=== PATIENT | female | born 1985 | race Caucasian/White ===

== ENCOUNTER 2016-08-01 21:09 | Emergency (ER) | payer MEDICAID, OTHER ==
[2016-08-01] MEDS ORDERED: Sodium Chloride 0.9% 10 ML Syringe FLUSH PRN ×2 (21:32→21:34)
[2016-08-01] MEDS ORDERED: Ondansetron 4 MG/2 ML SDV IVPUSH ONE (21:35)
[2016-08-01] MEDS ORDERED: Sodium Chloride 0.9% 1,000 ML IV ONE ×2 (21:35→23:52)
[2016-08-01] MEDS ORDERED: Acetaminophen 325 MG Tab PO ONE (21:47)
[2016-08-01] MEDS ORDERED: Acetaminophen 500 MG Tab ONE (21:55)
[2016-08-01 22:28] LABS: CHLORIDE,CL 96 mmol/L (98-107); SODIUM,NA 132 mmol/L (136-145)
[2016-08-01] MEDS ORDERED: Piperacillin/Tazobactam 4.5 GM in Sodium Chloride 0.9% 100 ML IV ONE (22:40)
[2016-08-01] MEDS ORDERED: Iopamidol 612 MG/ML 100 ML Bottle IVPUSH ONE (23:03)
[2016-08-01] MEDS ORDERED: Sodium Chloride 0.9% 100 ML IV ONE (23:03)
[2016-08-02 00:12] VITALS: BP 91/50
--- NOTE | 2016-08-02 09:44 | ER ---
Date of Service: 08/01/2016 SUBJECTIVE: Sri presents to the emergency room via EMS. The patient has a longstanding history of IV drug use and is known to be an IV drug user as well as for placement of methamphetamine rectally. The patient initially denied this, but did subsequently confess to rectal placement of methamphetamine. The patient states that for the past 6 days she has been experiencing severe fever, chills, and severe tenesmus. She states that she has not been able to have a bowel movement for several days. Again, she states that she has been feeling poorly for approximately 6. The patient states that she last injected methamphetamine yesterday. Again, the patient does have a longstanding history of methamphetamine use. She was last seen in this facility in May with agitation and confusion associated with her methamphetamine abuse. PAST MEDICAL HISTORY: 1. Severe methamphetamine addiction. 2. History of opiate addiction. 3. Marijuana user. 4. Depression. 5. Anxiety. 6. Urinary tract infections. MEDICATIONS: The patient had been prescribed clonazepam, escitalopram, and bupropion, but the last time these medications were filled were in April. ALLERGIES: Trimethoprim and sulfamethoxazole. REVIEW OF SYSTEMS: Constitutional: Positive for fever and chills. HEENT: Denies any sore throat, rhinorrhea, or congestion. Respiratory: No shortness of breath. Cardiac: Denies any substernal chest pain. No jaw, arm, neck, or back pain. GI: Please see history of present illness. : Please see history of present illness. She denies any hematuria. No melena, hematochezia, or hematemesis. Neurologic: Does feel extremely fatigued. She was extremely weak and barely able to walk. PHYSICAL EXAMINATION: General: This is a 31-year-old female patient, who is in moderate amount of distress. Vital Signs: Initial vital signs; heart rate is 126, blood pressure is 127/79, respiratory rate 22, O2 saturations 98%, and T-max in the ER was 38.4. Skin: Warm, pale, and mildly diaphoretic. HEENT: Head is normocephalic and atraumatic. Mouth, oral mucosa is moist. No erythema or exudate noted in the patient's hypopharynx. Neck: Supple, without masses. There is no lymphadenopathy. Lungs: Clear to auscultation. Heart: Regular rate and rhythm. No murmurs are appreciated. Abdomen: Soft, tender in the lower abdominal region. Again, complains of severe tenesmus and inability to have a bowel movement due to pain. Extremities: Without edema. Neurologic: She is awake. Able to answer questions, but is somnolent. Remainder of her physical examination is within normal limits. LABORATORY DATA: The patient did have an 18,100 white count, hemoglobin is 10.7, and platelets are 212. Coags; PT is 12.2 and INR is 1.1. Sodium is 132, potassium is 3.8, chloride is 96, bicarb is 25, BUN is 9, creatinine is 1.2, GFR is 53, glucose is 94, lactic acid is 1.3, calcium is 8.5, and corrected calcium is 9.62. Total bilirubin is 1.2, AST is 11, ALT is 18, alkaline phosphatase is 80, C-reactive protein is 41, total protein is 6.2, albumin is 2.6, and amylase is 19. Urinalysis revealed small occult blood, rare mucus, negative for nitrites, leukocytes, protein, ketones, and glucose. Urine toxicology positive for amphetamine and methamphetamine. CT scan of the patient's abdomen and pelvis revealed severe colitis to the distal colon with constipation proximal to this consistent with inability to void due to tenesmus. There was some surrounding inflammatory change and mild free fluid or and also a small ovarian cyst. EMERGENCY ROOM COURSE: IV access was established x2. The patient was fluid resuscitated with a total of approximately 2 L of normal saline. She was started on Zosyn 4.5 g IV x1 and vancomycin 1750 mg IV x1. She was given Zofran 4 mg for nausea. Her heart rate decreased to approximately 110 at time of discharge. She remained stable in my care in the emergency room. 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 PLAN: The patient will be transferred to [facility]. She will require a surgical consult at some point if she is not gradually improving. She also will require an echocardiogram. We will continue with IV fluids during transport. All questions were answered. MWK: 08/02/2016 00:04:04 MODL: 08/02/2016 01:01:39 /[id number]
== END 2016-08-02 00:30 | disposition short-term general hospital (02) ==
LOC: VM.ED 21:09
DX: T80.29XA Infection following other infusion, transfusion and therapeutic injection, initial encounter (principal); K55.039 Acute (reversible) ischemia of large intestine, extent unspecified; F32.9 Major depressive disorder, single episode, unspecified; Z88.2 Allergy status to sulfonamides; F41.9 Anxiety disorder, unspecified; Z88.8 Allergy status to other drugs, medicaments and biological substances
CPT/HCPCS: 36415; 51702; 71010; 74177; 80053; 80305; 81001; 81025; 82150; 83605; 85025; 85610; 86140; 87040; 87081; 87804; 87880; 93005; 96360; 96361; 96365; 96367; 96375; 99285; A9270; J2405; J2543; J3370; J7030; J7050; Q9967

== ENCOUNTER 2019-04-07 14:55 | Emergency (ER) | payer MEDICAID ==
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
[2019-04-07 15:44] VITALS: BP 133/95; PULSE 104
[2019-04-07 16:02] LABS: BUPRENORPHINE,URINE NEGATIVE (NEGATIVE); MARIJUANA,URINE NEGATIVE (NEGATIVE); METHYLENEDIOXYMETHAMP,UR NEGATIVE (NEGATIVE)
[2019-04-07 16:03] LABS: PHENCYCLIDINE,URINE NEGATIVE (NEGATIVE)
[2019-04-07 16:18] LABS: CHLORIDE,CL 108 mmol/L (98-107); SODIUM,NA 144 mmol/L (136-145)
[2019-04-07 16:37] LABS: ACETAMINOPHEN 0 ug/ml (10-30)
== END 2019-04-07 17:10 | disposition home or self-care (01) ==
LOC: VM.ED 14:55
DX: F32.9 Major depressive disorder, single episode, unspecified (principal); F41.9 Anxiety disorder, unspecified; Z88.2 Allergy status to sulfonamides; Z88.1 Allergy status to other antibiotic agents; Z79.899 Other long term (current) drug therapy
CPT/HCPCS: 36415; 80048; 80305-QW; 81001; 84443; 85025; 99284; G0480

== ENCOUNTER 2019-04-11 12:51 | Emergency (ER) | payer MEDICAID ==
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
[2019-04-11 13:06] VITALS: BP 139/97; PULSE 81
[2019-04-11 13:56] LABS: BARBITURATE SCREEN,URINE NEGATIVE (NEGATIVE); BENZODIAZEPINES SCREEN,URINE NEGATIVE (NEGATIVE); EDDP,URINE SCREEN NEGATIVE (NEGATIVE); METHAMPHETAMINE SCREEN, URINE NEGATIVE (NEGATIVE); TCA SCREEN,URINE NEGATIVE (NEGATIVE); THC SCREEN,URINE 50 NG/ML NEGATIVE (NEGATIVE)
== END 2019-04-11 15:36 | disposition home or self-care (01) ==
LOC: VM.ED 12:51
DX: F32.9 Major depressive disorder, single episode, unspecified (principal); F41.0 Panic disorder [episodic paroxysmal anxiety]; F17.200 Nicotine dependence, unspecified, uncomplicated; Z88.2 Allergy status to sulfonamides; Z88.1 Allergy status to other antibiotic agents; Z79.899 Other long term (current) drug therapy
CPT/HCPCS: 36415; 80305-QW; 81025; 85025; 99284

== ENCOUNTER 2019-07-11 12:11 | Emergency (ER) | payer MEDICAID ==
[2019-07-11 12:41] LABS: BARBITURATE SCREEN,URINE NEGATIVE (NEGATIVE); BENZODIAZEPINES SCREEN,URINE NEGATIVE (NEGATIVE); EDDP,URINE SCREEN NEGATIVE (NEGATIVE)
[2019-07-11 12:42] LABS: METHAMPHETAMINE SCREEN, URINE POSITIVE (NEGATIVE); TCA SCREEN,URINE NEGATIVE (NEGATIVE); THC SCREEN,URINE 50 NG/ML NEGATIVE (NEGATIVE)
[2019-07-11 12:57] LABS: CHLORIDE,CL 105 mmol/L (98-107); SODIUM,NA 138 mmol/L (136-145)
[2019-07-11 13:01] VITALS: BP 139/83; PULSE 94
[2019-07-11 13:04] LABS: ANION GAP 15.9 mmol/L (10-20)
--- NOTE | 2019-07-11 13:05 | EDM.PDOCBH ---
ED HPI GENERAL MEDICAL PROBLEM - General Chief Complaint: Behavioral/Psych Stated Complaint: MENTAL HEALTH Time Seen by Provider: 07/11/19 12:25 Source of Information: Reports: Patient History Limitations: Reports: No Limitations - History of Present Illness INITIAL COMMENTS - FREE TEXT/NARRATIVE: Patient presents to ER with local police with concerns of meth use, suicidal ideation and paranoia. Patient has long history of intermittent meth use. Admits last used 3 days ago. Has been in and out of treatment multiple times. Last inpatient stay in [place] in January. She admits that she had been clean for a few weeks and then her ex-boyfriend came back and "enticed her" again so she smoked it. Now she feels she is coming down from it, can feel she is on edge. Has been hearing things in her apartment, like her boyfriend, stalking her and she doesn't know if it is real. She has felt very depressed the last few days and knows she needs help. States she thinks about suicide more than she doesn't. Thinks about sitting [place] the [place] or hanging herself. No attempts. Has been involved with this shanda in her life for 3 years and that is when she first started daily using of meth. Onset: Gradual Duration: Day(s):, Getting Worse Location: Reports: Generalized Associated Symptoms: Reports: Confusion. Denies: Chest Pain, Cough, Fever/ Chills, Loss of Appetite, Nausea/Vomiting, Shortness of Breath, Weakness - Related Data Allergies Allergy/AdvReac Type Severity Reaction Status Date / Time sulfamethoxazole Allergy Other Verified 07/11/19 12:20 [From Bactrim] trimethoprim [From Bactrim] Allergy Other Verified 07/11/19 12:20 Home Meds: Home Meds ClonazePAM [KlonoPIN] 0.5 mg PO ASDIRECTED 04/07/19 [History] Escitalopram [Lexapro] 30 mg PO DAILY 04/07/19 [History] Propranolol [Inderal] 40 mg PO BID 04/07/19 [History] Topiramate [Topamax] 50 mg PO BID 04/07/19 [History] buPROPion [Wellbutrin SR] 150 mg PO DAILY 07/11/19 [History] traZODone HCl [Trazodone HCl] 50 mg PO DAILY 07/11/19 [History] Past Medical History Other HEENT History: environmental allergies Genitourinary History: Reports: Other (See Below) Other Genitourinary History: cystitis 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 Musculoskeletal History: broken ankle Neurological History: Reports: Migraines Psychiatric History: Reports: Addiction, Anxiety, Depression - Past Surgical History HEENT Surgical History: Reports: Adenoidectomy, Tonsillectomy Social & Family History - Tobacco Use Smoking Status *Q: Current Every Day Smoker - Recreational Drug Use Recreational Drug Type: Reports: Marijuana/Hashish, Methamphetamine Recreational Drug Use Frequency: Binges Years of Recreational Drug Use: 4 Recreational Drug Route: Reports: Inhaled ED ROS GENERAL - Review of Systems Review Of Systems: See Below Constitutional: Reports: Decreased Appetite. Denies: Fever, Chills, Malaise, Weakness HEENT: Denies: Ear Pain, Sinus Problem, Throat Pain Respiratory: Denies: Shortness of Breath, Cough Cardiovascular: Denies: Chest Pain, Edema, Lightheadedness Endocrine: Reports: Fatigue GI/Abdominal: Denies: Abdominal Pain, Nausea, Vomiting : Reports: No Symptoms Musculoskeletal: Reports: No Symptoms Skin: Reports: Lesions Neurological: Reports: Confusion Psychiatric: Reports: Agitation, Anxiety, Confusion, Depression, Hallucinations , Suicidal Ideation. Denies: Homicidal Ideation ED EXAM, BEHAVIORAL HEALTH - Physical Exam Exam: See Below Exam Limited By: No Limitations General Appearance: Alert, Other (very jittery, in constant motion) Eye Exam: Bilateral Eye: PERRL Ears: Normal External Exam, Normal TMs Nose: Normal Inspection, Normal Mucosa, No Blood Throat/Mouth: Normal Inspection, Normal Oropharynx Head: Normocephalic Neck: Normal Inspection, Supple, Non-Tender Respiratory/Chest: No Respiratory Distress, Lungs Clear, Normal Breath Sounds Cardiovascular: Regular Rate, Rhythm GI/Abdominal: Normal Bowel Sounds, Soft, Non-Tender Extremities: Normal Inspection, No Pedal Edema Neurological: Alert, Normal Cognition, Oriented x 3 Psychiatric: Alert, Restless, Agitated, Flight of Ideas, Suicidal Thoughts, Auditory Hallucinations, Paranoid Thoughts. No: Homicidal Thoughts Skin Exam: Warm, Dry, Wound/incision (scattered lesions and wounds on her face, arms) COURSE, BEHAVIORAL HEALTH COMP - Course Vital Signs: Last Vital Signs Temp 95.7 F L 07/11/19 12:27 Pulse 94 07/11/19 12:27 Resp 16 07/11/19 12:27 BP 139/83 07/11/19 12:27 Pulse Ox 98 07/11/19 12:27 Orders, Labs, Meds: Laboratory Tests 07/11/19 07/11/19 07/11/19 Range/Units 12:30 12:30 12:35 WBC 8.7 (4.0-10.0) x10^3/uL RBC 4.54 (4.00-5.50) x10^6/uL Hgb 12.7 (12.0-16.0) g/dL Hct 37.2 (33.0-47.0) % MCV 81.9 D (78.0-93.0) fL MCH 28.0 (26.0-32.0) pg MCHC 34.1 (32.0-36.0) g/dL RDW Coeff of Hermelindo 13.6 (10.0-15.0) % Plt Count 326 (130-400) x10^3/uL Neut % (Auto) 66.1 (50.0-80.0) % Lymph % (Auto) 21.7 L (25.0-50.0) % Coffey % (Auto) 9.0 (2.0-11.0) % Eos % (Auto) 2.9 (0.0-4.0) % Baso % (Auto) 0.3 (0.2-1.2) % Sodium 138 (136-145) mmol/L Potassium 3.9 (3.5-5.1) mmol/L Chloride 105 (98-107) mmol/L Carbon Dioxide 21 (21-32) mmol/L Anion Gap 15.9 (10-20) mmol/L BUN 14 (7-18) mg/dL Creatinine 0.9 (0.55-1.02) mg/dL Est Cr Clr Drug Dosing TNP Estimated GFR (MDRD) > 60 Glucose 101 (74-106) mg/dL Calcium 8.5 (8.5-10.1) mg/dL Corrected Calcium 8.74 (8.5-10.1) mg/dL Total Bilirubin 0.6 (0.2-1.0) mg/dL AST 15 (15-37) U/L ALT 24 (14-59) U/L Alkaline Phosphatase 84 (46-116) U/L Total Protein 7.0 (6.4-8.2) g/dL Albumin 3.7 (3.4-5.0) g/dL Globulin 3.3 Albumin/Globulin Ratio 1.12 Urine Color (YELLOW) Urine Appearance (CLEAR) Urine pH (5.0-8.0) Ur Specific [place] Urine Protein (NEGATIVE) mg/dL Urine Glucose (UA) (NEGATIVE) mg/dL Urine Ketones (NEGATIVE) mg/dL Urine Occult Blood (NEGATIVE) Urine Nitrite (NEGATIVE) Urine Bilirubin (NEGATIVE) Urine Urobilinogen (0.2) EU/dL Ur Leukocyte Esterase (NEGATIVE) Urine RBC (NOT SEEN) /HPF Urine WBC (NOT SEEN) /HPF Ur Squamous Epith Cells (NEGATIVE) /HPF Amorphous Sediment Urine Bacteria (NEGATIVE) /HPF Urine Mucus (NEGATIVE) /LPF Urine Opiates Screen Negative (NEGATIVE) Ur Buprenorphine Scrn Negative (NEGATIVE) Ur Oxycodone Screen Negative (NEGATIVE) Ur EDDP (Meth Metab) Negative (NEGATIVE) Urine Methadone Screen Negative (NEGATIVE) Ur Barbiturates Screen Negative (NEGATIVE) Ur Tricyclics Screen Negative (NEGATIVE) Ur Phencyclidine Scrn Negative (NEGATIVE) Ur Amphetamine Screen Negative (NEGATIVE) U Methamphetamines Scrn Positive H (NEGATIVE) Urine MDMA Screen Negative (NEGATIVE) U Benzodiazepines Scrn Negative (NEGATIVE) U Cocaine Metab Screen Negative (NEGATIVE) U Marijuana (THC) Screen Negative (NEGATIVE) Ethyl Alcohol < 3 (0-3) mg/dL 07/11/19 Range/Units 12:35 WBC (4.0-10.0) x10^3/uL RBC (4.00-5.50) x10^6/uL Hgb (12.0-16.0) g/dL Hct (33.0-47.0) % MCV (78.0-93.0) fL MCH (26.0-32.0) pg MCHC (32.0-36.0) g/dL RDW Coeff of Hermelindo (10.0-15.0) % Plt Count (130-400) x10^3/uL Neut % (Auto) (50.0-80.0) % Lymph % (Auto) (25.0-50.0) % Coffey % (Auto) (2.0-11.0) % Eos % (Auto) (0.0-4.0) % Baso % (Auto) (0.2-1.2) % Sodium (136-145) mmol/L Potassium (3.5-5.1) mmol/L Chloride (98-107) mmol/L Carbon Dioxide (21-32) mmol/L Anion Gap (10-20) mmol/L BUN (7-18) mg/dL Creatinine (0.55-1.02) mg/dL Est Cr Clr Drug Dosing Estimated GFR (MDRD) Glucose (74-106) mg/dL Calcium (8.5-10.1) mg/dL Corrected Calcium (8.5-10.1) mg/dL Total Bilirubin (0.2-1.0) mg/dL AST (15-37) U/L ALT (14-59) U/L Alkaline Phosphatase (46-116) U/L Total Protein (6.4-8.2) g/dL Albumin (3.4-5.0) g/dL Globulin Albumin/Globulin Ratio Urine Color Yellow (YELLOW) Urine Appearance Slightly cloudy H (CLEAR) Urine pH 7.0 (5.0-8.0) Ur Specific [place] 1.025 Urine Protein Negative (NEGATIVE) mg/dL Urine Glucose (UA) Negative (NEGATIVE) mg/dL Urine Ketones Negative (NEGATIVE) mg/dL Urine Occult Blood Trace-intact H (NEGATIVE) Urine Nitrite Negative (NEGATIVE) Urine Bilirubin Negative (NEGATIVE) Urine Urobilinogen 0.2 (0.2) EU/dL Ur Leukocyte Esterase Negative (NEGATIVE) Urine RBC 5-10 H (NOT SEEN) /HPF Urine WBC 0-5 (NOT SEEN) /HPF Ur Squamous Epith Cells Moderate H (NEGATIVE) /HPF Amorphous Sediment Moderate Urine Bacteria Rare (NEGATIVE) /HPF Urine Mucus Occasional H (NEGATIVE) /LPF Urine Opiates Screen (NEGATIVE) Ur Buprenorphine Scrn (NEGATIVE) Ur Oxycodone Screen (NEGATIVE) Ur EDDP (Meth Metab) (NEGATIVE) Urine Methadone Screen (NEGATIVE) Ur Barbiturates Screen (NEGATIVE) Ur Tricyclics Screen (NEGATIVE) Ur Phencyclidine Scrn (NEGATIVE) Ur Amphetamine Screen (NEGATIVE) U Methamphetamines Scrn (NEGATIVE) Urine MDMA Screen (NEGATIVE) U Benzodiazepines Scrn (NEGATIVE) U Cocaine Metab Screen (NEGATIVE) U Marijuana (THC) Screen (NEGATIVE) Ethyl Alcohol (0-3) mg/dL Medical Clearance: 07/11/19 13:11 Labs are all clear. Urine positive for meth. Contact Jada the screener for the [facility], who was aware and requested medical clearance. [employer] [facility] here for transport. Patient agreeable to plan. Departure - Departure Time of Disposition: 13:12 Disposition: DC/Tfer to Psych Hosp/Unit [facility] Condition: Fair Clinical Impression: Hallucinations, Methamphetamine abuse, History of suicidal ideation - Discharge Information *PRESCRIPTION DRUG MONITORING PROGRAM REVIEWED*: No *COPY OF PRESCRIPTION DRUG MONITORING REPORT IN PATIENT KAI: No Forms: ED Department Discharge Additional Instructions: Transfer to the [facility] screener per local exchange clerk's department Sepsis Event Note - Focused Exam Vital Signs: Vital Signs Temp Pulse Resp BP Pulse Ox 07/11/19 12:27 95.7 F L 94 16 139/83 98 Date Exam was Performed: 07/11/19 Time Exam was Performed: 13:11
== END 2019-07-11 13:20 ==
LOC: VM.ED 12:11
DX: R44.3 Hallucinations, unspecified (principal); F15.10 Other stimulant abuse, uncomplicated; G43.909 Migraine, unspecified, not intractable, without status migrainosus; F41.9 Anxiety disorder, unspecified; F32.9 Major depressive disorder, single episode, unspecified; F17.200 Nicotine dependence, unspecified, uncomplicated; Z88.2 Allergy status to sulfonamides; Z88.1 Allergy status to other antibiotic agents; Z79.899 Other long term (current) drug therapy
CPT/HCPCS: 36415; 80053; 80305-QW; 80307; 81001; 85025; 99285

== ENCOUNTER 2024-07-02 04:50 | Emergency (ER) | payer MEDICAID ==
[2024-07-02] MEDS: Sodium Chloride 0.9% 1,000 ML IV ONE (05:45)
[2024-07-02] MEDS: Ondansetron 4 MG/2 ML SDV IVPUSH PRN (05:46)
[2024-07-02] MEDS: diphenhydrAMINE 50 MG/ML SDV IVPUSH ONE (05:48)
[2024-07-02 05:49] LABS: ANION GAP 14.1 mmol/L (5-15); BLOOD UREA NITROGEN,BUN 13 mg/dL (7-18); CALCIUM 8.8 mg/dL (8.5-10.1); CARBON DIOXIDE,CO2 23 mmol/L (21-32); CHLORIDE,CL 104 mmol/L (98-107); CREATININE 0.9 mg/dL (0.55-1.02); ESTIMATED GFR 84 mL/min (>=60); GLUCOSE RANDOM 111 mg/dL (70-99); POTASSIUM,K 4.1 mmol/L (3.5-5.1); SODIUM,NA 137 mmol/L (136-145)
[2024-07-02] MEDS: Ketorolac 30 MG/ML SDV IVPUSH ONE (06:15)
[2024-07-02 06:44] VITALS: BP 148/95; PULSE 91
== END 2024-07-02 07:09 | disposition home or self-care (01) ==
LOC: VM.ED 04:50
DX: R51.9 Headache, unspecified (principal); Z79.899 Other long term (current) drug therapy; Z88.2 Allergy status to sulfonamides
CPT/HCPCS: 36415; 80048; 96361; 96374; 96375; 99284; J1200; J1885; J2405; J7030

== ENCOUNTER 2024-08-26 22:41 | Emergency (ER) | payer MEDICAID ==
[2024-08-26] MEDS ORDERED: Sodium Chloride 0.9% 10 ML Syringe FLUSH PRN (22:51)
[2024-08-26] MEDS: Lactated Ringers 1,000 ML IV ONE (23:12)
[2024-08-26 23:15] LABS: BASOPHILS PERCENT AUTO 0.5 % (0.2-1.2); EOSINOPHILS ABSOLUTE AUTO 0.4 x10^3/uL (0.0-0.5); EOSINOPHILS PERCENT AUTO 4.4 % (0.0-4.0); HEMATOCRIT 34.8 % (33.0-47.0); HEMOGLOBIN 11.8 g/dL (12.0-16.0); IMMATURE GRAN ABSOLUTE AUTO 0.04 x10^3/uL (0.00-0.07); LYMPHOCYTES ABSOLUTE AUTO 3.4 x10^3/uL (1.0-4.8); LYMPHOCYTES PERCENT AUTO 41.7 % (25.0-50.0); MEAN CORPUSCULAR HEMOGLOBIN 27.1 pg (26.0-32.0); MEAN CORPUSCULAR HGB CONC 33.9 g/dL (32.0-36.0); MEAN CORPUSCULAR VOLUME 79.8 fL (78.0-93.0); MONOCYTES ABSOLUTE AUTO 0.4 x10^3/uL (0.0-0.8); NEUTROPHILS PERCENT AUTO 47.9 % (50.0-80.0); PLATELET COUNT,PLT 333 x10^3/uL (130-400); RED BLOOD CELL COUNT 4.36 x10^6/uL (4.00-5.50); WHITE BLOOD CELL COUNT,WBC 8.2 x10^3/uL (4.0-10.0)
[2024-08-26 23:43] LABS: A/G RATIO 1.23; ALANINE AMINOTRANSFERASE,ALT 20 U/L (14-59); ALBUMIN 3.7 g/dL (3.4-5.0); ALKALINE PHOSPHATASE 78 U/L (46-116); ASPARTATE AMNIOTRANSFERASE,AST 12 U/L (15-37); BILIRUBIN TOTAL 0.3 mg/dL (0.2-1.0); BLOOD UREA NITROGEN,BUN 14 mg/dL (7-18); C-REACTIVE PROTEIN 0.92 mg/dL (<=0.50); CALCIUM 8.4 mg/dL (8.5-10.1); CARBON DIOXIDE,CO2 22 mmol/L (21-32); CHLORIDE,CL 104 mmol/L (98-107); CREATININE 1.1 mg/dL (0.55-1.02); ETHANOL BLOOD MEDICAL 11 mg/dL (0-3); GLUCOSE RANDOM 101 mg/dL (70-99); MAGNESIUM 2.1 mg/dL (1.8-2.4); POTASSIUM,K 3.4 mmol/L (3.5-5.1); PRO B-TYPE NATRIUR PEPT,BNPPRO 19 pg/mL (<=125); PROTEIN TOTAL,TP 6.7 g/dL (6.4-8.2); SODIUM,NA 139 mmol/L (136-145); TSH ULTRASENSITIVE 1.927 uIU/mL (0.358-3.74)
[2024-08-26 23:44] LABS: ANION GAP 16.4 mmol/L (5-15); ESTIMATED GFR 66 mL/min (>=60)
[2024-08-26 23:56] LABS: APPEARANCE,URINE CLEAR (CLEAR); BILIRUBIN,URINE NEGATIVE (NEGATIVE); COLOR,URINE YELLOW (YELLOW); GLUCOSE,URINE NEGATIVE (NEGATIVE); KETONES,URINE NEGATIVE (NEGATIVE); LEUKOCYTE ESTERASE,URINE NEGATIVE (NEGATIVE); NITRITE,URINE NEGATIVE (NEGATIVE); OCCULT BLOOD,URINE NEGATIVE (NEGATIVE); PROTEIN,URINE 100 mg/dL (NEGATIVE); UROBILINOGEN,URINE 0.2 EU/dL (0.2)
[2024-08-26 23:57] LABS: RBC,URINE 0-5 /HPF (NOT SEEN); SQUAMOUS EPITHELIAL CELLS,UR FEW /HPF (NOT SEEN); WBC,URINE 0-5 /HPF (NOT SEEN)
[2024-08-26 23:58] LABS: AMPHETAMINES SCREEN, URINE POSITIVE (NEGATIVE); BACTERIA,URINE OCCASIONAL /HPF (NOT SEEN); BARBITURATE SCREEN,URINE NEGATIVE (NEGATIVE); BENZODIAZEPINES SCREEN,URINE NEGATIVE (NEGATIVE); BUPRENORPHINE SCREEN,URINE NEGATIVE (NEGATIVE); COCAINE METABOLITES,URINE NEGATIVE (NEGATIVE); METHADONE SCREEN, URINE NEGATIVE (NEGATIVE); METHAMPHETAMINE SCREEN, URINE NEGATIVE (NEGATIVE); MUCUS,URINE OCCASIONAL /LPF (NOT SEEN); OXYCODONE SCREEN,URINE NEGATIVE (NEGATIVE); PCP SCREEN,URINE NEGATIVE (NEGATIVE); THC SCREEN,URINE 50 NG/ML POSITIVE (NEGATIVE)
[2024-08-27] MEDS ORDERED: Doxycycline Monohydrate 100 MG Cap PO ONE (00:10)
[2024-08-27 01:14] VITALS: PULSE 92
[2024-08-27 01:36] VITALS: BP 118/78
== END 2024-08-27 00:48 | disposition home or self-care (01) ==
LOC: VM.ED 22:41
DX: R55 Syncope and collapse (principal); E86.0 Dehydration; Z88.2 Allergy status to sulfonamides; Z88.8 Allergy status to other drugs, medicaments and biological substances; Z79.899 Other long term (current) drug therapy
CPT/HCPCS: 36415; 71045; 80053; 80305-QW; 80307; 81001; 81025; 83605; 83735; 83880; 84443; 84484; 85025; 85379; 86140; 93005; 93010; 96360; 99284; 99285-25; J7120

== ENCOUNTER 2024-09-27 00:51 | Emergency (ER) | payer MEDICAID ==
[2024-09-27 01:03] VITALS: BP 138/93; PULSE 96
[2024-09-27] MEDS: Take Home: Albuterol 18 GM Inhaler, 1 Inhaler Pack INH PRN (01:20)
[2024-09-27] MEDS: Take Home: predniSONE 20 MG, 2 Tab Pack PO ONE (01:20)
== END 2024-09-27 01:26 | disposition home or self-care (01) ==
LOC: SUPCPDRO 00:51 → VM.ED 00:51
DX: J20.8 Acute bronchitis due to other specified organisms (principal); Z88.1 Allergy status to other antibiotic agents; Z88.2 Allergy status to sulfonamides
CPT/HCPCS: 99283; A9270-GY; J7512

== ENCOUNTER 2024-10-03 08:51 | Emergency (ER) | payer MEDICAID ==
[2024-10-03 09:10] LABS: APPEARANCE,URINE TURBID (CLEAR); BILIRUBIN,URINE NEGATIVE (NEGATIVE); COLOR,URINE YELLOW (YELLOW); GLUCOSE,URINE NEGATIVE (NEGATIVE); KETONES,URINE NEGATIVE (NEGATIVE); LEUKOCYTE ESTERASE,URINE LARGE (NEGATIVE); NITRITE,URINE NEGATIVE (NEGATIVE); OCCULT BLOOD,URINE MODERATE (NEGATIVE); PROTEIN,URINE 30 mg/dL (NEGATIVE); UROBILINOGEN,URINE 0.2 EU/dL (0.2)
[2024-10-03 09:19] LABS: BACTERIA,URINE FEW /HPF (NOT SEEN); RBC,URINE 0-5 /HPF (NOT SEEN); SQUAMOUS EPITHELIAL CELLS,UR MANY /HPF (NOT SEEN); WBC,URINE SEMI-PACKED /HPF (NOT SEEN)
[2024-10-03] MEDS: Take Home: Nitrofurantoin Monohydrate/Macrocrystalline 100 MG, 6 Cap Pack PO ONE (09:21)
== END 2024-10-03 09:27 | disposition home or self-care (01) ==
LOC: VM.ED 08:51
DX: N39.0 Urinary tract infection, site not specified (principal); F17.210 Nicotine dependence, cigarettes, uncomplicated; Z88.2 Allergy status to sulfonamides; Z79.899 Other long term (current) drug therapy
CPT/HCPCS: 81001; 87086; 87088; 87186; 99283; 99284; A9270-GY